=== PATIENT | male | born 2000 | race Caucasian/White ===

== ENCOUNTER 2019-03-11 16:29 | Inpatient (IN) ==
[2019-03-11] MEDS ORDERED: METHYLPREDNISOLONE SOD SUCC/PF 125 MG/2 ML VIAL IV ONE (16:58)
[2019-03-11] MEDS ORDERED: ALBUTEROL SULFATE/IPRATROPIUM 3 ML NEBU IH ONE (16:58)
[2019-03-11 17:09] LABS: Hemoglobin 16.5 gm/dL (13.5-18.0); Mean Cell Volume 87.4 fl (78-100); Mean Corpuscular Hemoglobin 30.1 pg (27-31); Mean Corpuscular Hgb Conc 34.4 g/dl (32-36); Mean Platelet Volume 9.6 fl (8-11.3); Neutrophil # 7.6 K/mm3 (1.3-6.0); Neutrophil % 62.1 % (42-75.0); Platelet Count 302 K/mm3 (150-450); Red Blood Count 5.49 M/mm3 (4.7-6.0); Red Cell Distribution Width 12.6 % (11.5-14.0); White Blood Count 12.2 K/mm3 (4.0-10.5)
[2019-03-11 17:23] LABS: Albumin * 4.7 gm/dl (3.4-5.0); BUN/Creatinine Ratio 12.4 (9.0-21.6); Bilirubin, Total 0.5 mg/dL (0.0-1.1); Calcium * 8.9 mg/dL (7.9-10.9)
[2019-03-11] MEDS ORDERED: ALBUTEROL SULFATE 2.5 MG/0.5 ML VIAL.NEB IH ONE (18:51)
--- NOTE | 2019-03-11 18:59 | ERNOTE ---
Dyspnea - Date Date of Service: 03/11/19 - General Presenting Symptoms: wheezing Time Seen by Provider: 03/11/19 16:51 Source: patient, RN notes reviewed Exam Limitations: no limitations - Immun/Allergies/Home Medications Immunizations: IMMUNIZATION HX Immunizations Up to Date Yes History of Influenza Vaccine No Hx Pneumococcal Vaccination No Allergies/Adverse Reactions: Allergies cat dander Allergy (Verified 02/10/19 09:56) per testing dog dander Allergy (Verified 02/10/19 09:56) per testing egg Allergy (Verified 02/10/19 09:56) eye white house dust mite Allergy (Verified 02/10/19 09:56) montelukast sodium [From Singulair] Allergy (Verified 02/10/19 09:56) Other tree and shrub pollen Allergy (Verified 02/10/19 09:56) rhinitis cefuroxime Adverse Reaction (Verified 02/10/19 09:56) vomiting and diarrhea sulfamethoxazole [From Bactrim] Adverse Reaction (Verified 02/10/19 09:56) vomiting trimethoprim [From Bactrim] Adverse Reaction (Verified 02/10/19 09:56) vomiting Home Medications: HOME MEDICATIONS dexmethylphenidate 5 mg tablet 5 mg PO .Qafternoon PRN #30 tab 11/21/18 [Last Taken Unknown] dexmethylphenidate 20 mg capsule,extended release [id number] 20 mg PO DAILY #30 cap 02/06/19 [Last Taken Unknown] zileuton 600 mg tablet,extended release 12hr mphase 2 tab PO BID #360 tab 02/10/19 [Last Taken Unknown] albuterol sulfate 90 mcg/actuation aerosol inhaler 2 puff INHALATION TID PRN #8.5 g 02/28/19 [Last Taken Unknown] - History of Present Illness Narrative: Gordon is a 18-year-old male with a history of asthma who presents to the emergency department for a cough, wheezing and chest pain. He has had the cough for approximately a week. He has been having chest pain since early this morning. This worsens with deep breathing. He reports that he is usually able to manage his asthma with his inhalers but his wheezing has not improved with them at this time. He also reports nasal congestion, headache and sore throat. He feels like his breathing gets worse when he is at his apartment. There is construction being done in his building. He has never been hospitalized for his asthma or had to come to the ED for breathing problems. He has never seen a environmental conflict manager. He is not a smoker but does admit to vaping occasionally. Initiating event: Reports: unknown Frequency of episodes: Reports: occassional episodes - not as severe Prior Treatment: Denies: recently seen Review of Systems - Review of Systems Constitutional: Present: chills, malaise EYE: Absent: eye pain, eye discharge ENT: Present: nose congestion, nasal drainage, sore throat. Absent: ear pain Respiratory: Present: shortness of breath, cough, wheezing. Absent: stridor Cardiology: Present: chest pain. Absent: syncope Gastrointestinal/Abdominal: Absent: nausea, vomiting, diarrhea, abdominal pain Genitourinary: Present: no symptoms reported Musculoskeletal: Absent: muscle pain, joint pain Skin: Absent: rash, lesions Neurological: Present: headache. Absent: dizziness/light-headedness Endocrine: Present: no symptoms reported Hematologic/Lymphatic: Absent: easy bruising, easy bleeding Psych: Present: no symptoms reported Medical History (Last Reviewed 03/11/19 @ 19:32 by Tracy Clancy NP) ADHD (attention deficit hyperactivity disorder), combined type (Acute) Controlled mild persistent asthma (Chronic) Uncontrolled mild persistent asthma (Chronic) Concussion (Acute) Laceration (Acute) ADHD Allergic rhinitis Asthma Bifid uvula Congenital alimentary tract anomaly Contact dermatitis Eustachian tube dysfunction Otitis media, acute Perforation of tympanic membrane Sinusitis chronic, sphenoidal Strep pharyngitis Tonsillar and adenoid hypertrophy nasal obstruction vestibulitis Surgical History: Surgical History (Last Reviewed 03/11/19 @ 19:32 by Tracy Clancy NP) Hydrocele Onset Date: ~2000 Male circumcision S/p bilateral myringotomy with tube placement x5 Family History: Family History (Last Reviewed 03/11/19 @ 19:32 by Tracy Clancy NP) Mother Hypertension Depression Anxiety Grandmother Hypertension Grandfather Hypertension Myocardial infarction Brother ADD (attention deficit disorder) Social History: (Last Reviewed 03/11/19 @ 19:32 by Tracy Clancy NP) Social History: prison: No Marital status: Single household members: family current occupational status: employed current occupation: bilingual counter sales retail at [employer] Highest education level completed: high school graduate Service: No Tobacco: Smoking Status: Never smoker Alcohol: alcohol intake: never Substance Use: substance use type: does not use Dietary Habits: caffeine: Yes Physical Exam - Physical Exam General Appearance: Present: alert, no apparent distress, thin Head Exam: Present: normal inspection Eye Exam: Normal inspection: bilateral Ears, Nose, Throat: Present: nasal congestion, pharyngeal erythema. Absent: a bnormal TM (R), abnormal TM (L), pharyngeal swelling, dry mucous membranes Neck: Present: normal inspection, nontender, supple, full range of motion Respiratory: Present: accessory muscle use, expiration (prolonged), wheezing - severe Cardiovascular/Chest: Present: no murmur, normal peripheral pulses, tachycardia Extremity Exam: Present: normal inspection, normal range of motion, no edema Neurological Exam: Present: alert, oriented, normal mood/affect, no motor/sensory deficits Skin Exam: Present: normal color, warm/dry Progress - Results and Orders Patient's Lab Results:: I have reviewed the patient's lab results. - Vital Signs Patient's Vital Signs:: I have reviewed the patient's vital signs. Vital Signs: Vital Signs 03/11/19 16:36 03/11/19 18:37 Temperature 36.9 C Pulse Rate 110 H 102 H Respiratory Rate 14 18 Blood Pressure 145/89 H 130/72 O2 Sat by Pulse Oximetry 98 95 - EKG EKG #1 EKG: NSR EKG read: Reviewed by me - X-Ray X-Ray #1 X-Ray: chest Interpretation: Reviewed by me X-ray Comments: No acute cardiopulmonary findings - Progress/Reassessment Chief Complaint: Chest Pain Progress:: Improved Plan - Plan Plan: The patient did not feel that his breathing had improved after IV SoluMedrol and a Duoneb treatment. He continued to have severe wheezing. His oxygen saturation was in the upper 90's initially but then dropped to the low 90's and occasionally upper 80's. He was given an hour long continuous albuterol treatment. His sats improved for a short time. He is currently 94-96% with oxygen at 2 L/NC. Dr. Tucker was contacted and the patient will be admitted to observation due to his hypoxia. Departure Clinical Impression: Hypoxia Asthma with acute exacerbation Qualifiers: Asthma severity: unspecified severity Asthma persistence: unspecified Qualified Code(s): J45.901 - Unspecified asthma with (acute) exacerbation - Departure Disposition: Still a patient Condition: Stable Referrals: Jesse Carrillo DO [Primary Care Provider] -
[2019-03-12] MEDS ORDERED: predniSONE 20 MG TABLET ONE (07:58)
[2019-03-12] MEDS: predniSONE 20 MG TABLET PO SCH (08:03)
[2019-03-12] MEDS ORDERED: ALBUTEROL SULFATE 2.5 MG/0.5 ML VIAL.NEB IH PRN (08:11)
[2019-03-12] MEDS ORDERED: DEXMETHYLPHENIDATE HCL 5 MG PO PRN (08:11)
--- NOTE | 2019-03-12 08:14 | HP ---
Chief Complaint - Chief Complaint Date of Service: 03/12/19 Time of Service: 08:04 Chief Complaint: dyspnea, cough History of Present Illness: Patient with a past medical history of asthma presented to the ED with dyspnea and cough. He was having some chest pain yesterday with his cough. Symptoms have been present for about a week. He lives in an apartment over a store that is undergoing some renovations. He used to vape, but has not done so in the last year. Does not smoke. He has never been to the ER for an asthma attack before. If he has an asthma attack, it usually is controlled with his albuterol inhalers. In the ED, he was given 125 mg of Solu-Medrol and a continuous hour- long breathing treatment, but his oxygen was still around 90%. He was admitted for oxygen administration. This morning, he feels better. He did not require DuoNeb treatments overnight. His chest does not feel as tight. He is now able to take a deep breath without coughing. He is still requiring oxygen, 4 L currently. Denies other complaints. Medical History (Last Reviewed 03/11/19 @ 21:28 by Josefina Boles RN) ADHD (attention deficit hyperactivity disorder), combined type (Acute) Controlled mild persistent asthma (Chronic) Uncontrolled mild persistent asthma (Chronic) Concussion (Acute) Laceration (Acute) ADHD Allergic rhinitis Asthma Bifid uvula Congenital alimentary tract anomaly Contact dermatitis Eustachian tube dysfunction Otitis media, acute Perforation of tympanic membrane Sinusitis chronic, sphenoidal Strep pharyngitis Tonsillar and adenoid hypertrophy nasal obstruction vestibulitis Surgical History: Surgical History (Last Reviewed 03/11/19 @ 22:28 by Josefina Boles RN) Hydrocele Onset Date: ~2000 Male circumcision S/p bilateral myringotomy with tube placement x5 Family History: Family History (Last Reviewed 03/11/19 @ 21:28 by Josefina Boles RN) Mother Hypertension Depression Anxiety Grandmother Hypertension Grandfather Hypertension Myocardial infarction Brother ADD (attention deficit disorder) Social History: (Last Reviewed 03/11/19 @ 21:28 by Josefina Boles RN) Social History: fdc: No Marital status: Single household members: family current occupational status: employed current occupation: chef german at [employer] Highest education level completed: high school graduate Service: No Tobacco: Smoking Status: Never smoker Alcohol: alcohol intake: never Substance Use: substance use type: does not use Dietary Habits: caffeine: Yes Review Of Systems (GEN) - Review of Systems Generalized/Overall Review: Absent: Fever Respiratory: Present: Cough, Shortness of Breath, Wheezing Cardiac: Present: Chest Pain Abdominal: Absent: Nausea, Vomiting Genitourinary: Present: No Symptoms Reported Neurological: Present: No Symptoms Reported Skin: Present: No Symptoms Reported Immunizations: IMMUNIZATION HX Immunizations Up to Date Yes History of Influenza Vaccine No Hx Pneumococcal Vaccination No Allergies/Adverse Reactions: Allergies Allergy/AdvReac Type Severity Reaction Status Date / Time cat dander Allergy Verified 02/10/19 09:56 dog dander Allergy Verified 02/10/19 09:56 egg Allergy Verified 02/10/19 09:56 house dust mite Allergy Verified 02/10/19 09:56 montelukast sodium Allergy Other Verified 02/10/19 09:56 [From Singulair] tree and shrub pollen Allergy rhinitis Verified 02/10/19 09:56 cefuroxime AdvReac vomiting Verified 02/10/19 09:56 and diarrhea sulfamethoxazole AdvReac vomiting Verified 02/10/19 09:56 [From Bactrim] trimethoprim [From Bactrim] AdvReac vomiting Verified 02/10/19 09:56 Home Medications: HOME MEDICATIONS dexmethylphenidate 5 mg tablet 5 mg PO .Qafternoon PRN #30 tab 11/21/18 [Last Taken Unknown] dexmethylphenidate 20 mg capsule,extended release [id number] 20 mg PO DAILY #30 cap 02/06/19 [Last Taken 03/11/19] zileuton 600 mg tablet,extended release 12hr mphase 2 tab PO BID #360 tab 02/10/19 [Last Taken 03/11/19] albuterol sulfate 90 mcg/actuation aerosol inhaler 2 puff INHALATION TID PRN #8.5 g 02/28/19 [Last Taken 03/11/19] Exam - Exam Vital Signs: Vital Signs - Last Taken Temp 36.8 C 03/12/19 06:41 Pulse 78 03/12/19 06:41 Resp 18 03/12/19 06:41 BP 116/57 03/12/19 06:41 Pulse Ox 94 03/12/19 06:41 Constitutional: Present: Cooperative, Well developed, Well nourished, No distress Respiratory: Present: wheezing - right lower lobe posteriorly, other - wearing 4L via NC Cardiovascular/Chest: Present: regular rate, rhythm Abdomen: Present: soft, nontender Diagnostic Studies: Abnormal Lab Results 03/11/19 03/11/19 Range/Units 17:05 17:05 WBC 12.2 H (4.0-10.5) K/mm3 Eosinophils % 7.4 H (0.0-3.0) % Neutrophils # 7.6 H (1.3-6.0) K/mm3 Eosinophils # 0.9 H (0.0-0.7) k/mm3 Anion Gap 14.0 H (6.8-13.8) mmol/L Calcium Adj for Albumin 8.0 L (8.4-10.2) mg/dL Laboratory Results WBC 12.2 K/mm3 (4.0-10.5) H 03/11/19 17:05 RBC 5.49 M/mm3 (4.7-6.0) 03/11/19 17:05 Hgb 16.5 gm/dL (13.5-18.0) 03/11/19 17:05 Hct 48.0 % (42.0-52.0) 03/11/19 17:05 MCV 87.4 fl (78-100) 03/11/19 17:05 MCH 30.1 pg (27-31) 03/11/19 17:05 MCHC 34.4 g/dl (32-36) 03/11/19 17:05 RDW 12.6 % (11.5-14.0) 03/11/19 17:05 Plt Count 302 K/mm3 (150-450) 03/11/19 17:05 MPV 9.6 fl (8-11.3) 03/11/19 17:05 Immature Gran % (Auto) 0.20 % (0.001-0.429) 03/11/19 17:05 Immature Gran # (Auto) 0.02 K/mm3 (0.000-0.0310) 03/11/19 17:05 Neutrophils % 62.1 % (42-75.0) 03/11/19 17:05 Lymphocytes % 23.6 % (20-51) 03/11/19 17:05 Monocytes % 5.8 % (0.0-9) 03/11/19 17:05 Eosinophils % 7.4 % (0.0-3.0) H 03/11/19 17:05 Basophils % 0.9 % (0.0-1.0) 03/11/19 17:05 Nucleated RBC % 0.0 k/mm3 (0-1) 03/11/19 17:05 Neutrophils # 7.6 K/mm3 (1.3-6.0) H 03/11/19 17:05 Lymphocytes # 2.89 k/mm3 (1.5-3.5) 03/11/19 17:05 Monocytes # 0.7 k/mm3 (0.0-1.0) 03/11/19 17:05 Eosinophils # 0.9 k/mm3 (0.0-0.7) H 03/11/19 17:05 Absolute Basophils 0.1 k/mm3 (0.0-0.1) 03/11/19 17:05 Sodium 141 mmol/L (132-142) 03/11/19 17:05 Plasma Sodium 141 mmol/L (130-142) 03/11/19 17:05 Potassium 4.0 mmol/L (3.4-4.6) 03/11/19 17:05 Chloride 102 mmol/L (97-106) 03/11/19 17:05 Carbon Dioxide 29.0 mmol/L (24-32.6) 03/11/19 17:05 Anion Gap 14.0 mmol/L (6.8-13.8) H 03/11/19 17:05 BUN 11 mg/dL (6-23) 03/11/19 17:05 Creatinine 0.89 mg/dL (0.4-1.4) 03/11/19 17:05 Est GFR (Non-Af Amer) 116 mL/min (60-130) D 03/11/19 17:05 BUN/Creatinine Ratio 12.4 (9.0-21.6) 03/11/19 17:05 Random Glucose 99 mg/dL (70-110) 03/11/19 17:05 Calcium 8.9 mg/dL (7.9-10.9) 03/11/19 17:05 Calcium Adj for Albumin 8.0 mg/dL (8.4-10.2) L 03/11/19 17:05 Total Bilirubin 0.5 mg/dL (0.0-1.1) 03/11/19 17:05 AST 23 U/L (0-48) 03/11/19 17:05 ALT 20 U/L (19-67) 03/11/19 17:05 Alkaline Phosphatase 70 U/L (50-170) 03/11/19 17:05 Total Protein 8.0 gm/dL (6.2-8.2) 03/11/19 17:05 Albumin 4.7 gm/dl (3.4-5.0) 03/11/19 17:05 Influenza Type A Ag Negative (NEGATIVE) 03/11/19 17:53 Influenza Type B Ag Negative (NEGATIVE) 03/11/19 17:53 Group A Strep Rapid Negative (NEGATIVE) 03/11/19 17:53 Assessment/Plan - Assessment/Plan (1) Asthma with acute exacerbation Assessment: He received 125 mg of Solu-Medrol in the ED. We will start 60 mg prednisone today. Will continue his home meds. I suspect this is due to dust inhalation. He feels better this morning, but is still requiring oxygen. He has mild wheezes on exam. Will continue duo nebs as needed, and try to wean him off oxygen. Anticipate discharge within 24 hours. Problem: Acute Qualifiers: Asthma severity: moderate Asthma persistence: unspecified Qualified Code(s): J45.901 - Unspecified asthma with (acute) exacerbation
[2019-03-12] MEDS: ZILEUTON 600 MG PO SCH ×2 (08:40→21:20)
[2019-03-12] MEDS: DEXMETHYLPHENIDATE HCL 20 MG PO SCH (08:40)
[2019-03-12] MEDS: ALBUTEROL SULFATE/IPRATROPIUM 3 ML NEBU IH PRN (11:39)
[2019-03-13] MEDS: ALBUTEROL SULFATE/IPRATROPIUM 3 ML NEBU IH PRN (06:13)
[2019-03-13] MEDS: predniSONE 20 MG TABLET PO SCH (09:48)
[2019-03-13] MEDS: DEXMETHYLPHENIDATE HCL 20 MG PO SCH (09:48)
[2019-03-13] MEDS: ZILEUTON 600 MG PO SCH ×2 (09:48→21:30)
--- NOTE | 2019-03-13 18:06 | PN ---
Subjective - Date and Time Seen Date: 03/13/19 Time: 10:57 Subjective Narrative: Patient still having difficulty with solid breathing, mild respiratory distress. He still requiring nasal cannula oxygen to maintain sats. Endorses some wheezing, shortness of breath, cough. Otherwise vital signs been stable and has been afebrile. Objective - Review of Systems Generalized/Overall Review: Denies: Chills, Fever, Diaphoresis, Fatigue EENTM: Reports: No Symptoms Reported Respiratory: Reports: Cough, Shortness of Breath, Wheezing Cardiac: Denies: Chest Pain, Edema, Palpitations Abdominal: Denies: Nausea, Vomiting, Abdominal Pain, Diarrhea Genitourinary Symptoms: Reports: No Symptoms Reported Neurological: Reports: No Symptoms Reported Skin: Reports: No Symptoms Reported - Vitals Vitals: Last Vital Signs Temp 37.0 C 03/13/19 15:14 Pulse 93 03/13/19 15:14 Resp 18 03/13/19 15:14 BP 121/66 03/13/19 15:14 Pulse Ox 95 03/13/19 16:43 - Exam Constitutional: Present: Alert, Oriented x3, Mild distress, Young ENT Exam: Absent: nasal congestion, nasal drainage, pharyngeal erythema Neck: Present: non-tender, supple Respiratory: Present: no accessory muscle use, respiratory distress - Mild, rhonchi, wheezing, expiration (prolonged) Cardiovascular/Chest: Present: regular rate, rhythm, no edema, no murmur Abdomen: Present: Normal bowel sounds, soft, nontender, nondistended /Rectal: Present: Exam deferred Skin Exam: Present: normal color, warm/dry Appearance: Present: appropriate appearance, appropriate insight Eye contact: Present: cooperative, good eye contact Thoughts: Present: normal thought pattern, normal mood /affect Assessment/Plan Plan Narrative: 18-year-old male brought in for acute asthma exacerbation, requiring nasal cannula oxygen administration to maintain sats. Patient has albuterol nebs given as needed which is helping with some of the wheezing. Patient was restarted on his Zileuton. Patient was started on steroids. Patient's exam consistent with persistent asthma exacerbation, will keep him overnight while he continues to require oxygen to maintain sats and continue steroids. Likely home tomorrow. No DVT prophylaxis needed, regular diet. Nurse to call questions or concerns. - Problems/Diagnosis (1) Asthma with acute exacerbation Problem: Acute Qualifiers: Asthma severity: moderate Asthma persistence: unspecified Qualified Code(s): J45.901 - Unspecified asthma with (acute) exacerbation (2) Hypoxia Problem: Acute (3) ADHD (attention deficit hyperactivity disorder), combined type Problem: Acute
[2019-03-14] MEDS: ZILEUTON 600 MG PO SCH (09:04)
[2019-03-14] MEDS: DEXMETHYLPHENIDATE HCL 20 MG PO SCH (09:04)
[2019-03-14] MEDS: predniSONE 20 MG TABLET PO SCH (09:04)
--- NOTE | 2019-03-14 11:38 | DS ---
(1) Asthma with acute exacerbation Problem: Acute Qualifiers: Asthma severity: moderate Asthma persistence: unspecified Qualified Code(s): J45.901 - Unspecified asthma with (acute) exacerbation (2) Hypoxia Problem: Acute (3) ADHD (attention deficit hyperactivity disorder), combined type Problem: Acute Hospital Course: 18-year-old male with history of mild to moderate persistent asthma presented to the hospital a few days ago with asthma exacerbation. He states that he has had a cough for the last 5 or so days prior to coming to the hospital which is likely triggered his asthma. While here he received breathing treatments and was started on steroids, as well as needed nasal cannula oxygen administration to maintain sats. Today he is feeling much better, he is no longer hypoxic. We will go ahead and continue prednisone for another 5 days which was sent to his pharmacy. We will also send in a Z-Constantino to help with his cough. Patient is to go home and restart his zileuton which he has been off of since coming here. Patient is in agreement the treatment plan, he will follow with his PCP in 2 weeks. Procedures Performed: none Results and Findings: Lab Pending Results 03/11/19 17:05: WBC 12.2 H, RBC 5.49, Hgb 16.5, Hct 48.0, MCV 87.4, MCH 30.1, MCHC 34.4, RDW 12.6, Plt Count 302, MPV 9.6, Immature Gran % (Auto) 0.20, Immature Gran # (Auto) 0.02, Neutrophils % 62.1, Lymphocytes % 23.6, Monocytes % 5.8, Eosinophils % 7.4 H, Basophils % 0.9, Nucleated RBC % 0.0, Neutrophils # 7.6 H, Lymphocytes # 2.89, Monocytes # 0.7, Eosinophils # 0.9 H, Absolute Basophils 0.1 03/11/19 17:05: Sodium 141, Plasma Sodium 141, Potassium 4.0, Chloride 102, Carbon Dioxide 29.0, Anion Gap 14.0 H, BUN 11, Creatinine 0.89, Est GFR (Non-Af Amer) 116 D, BUN/Creatinine Ratio 12.4, Random Glucose 99, Calcium 8.9, Calcium Adj for Albumin 8.0 L, Total Bilirubin 0.5, AST 23, ALT 20, Alkaline Phosphatase 70, Total Protein 8.0, Albumin 4.7 03/11/19 17:53: Influenza Type A Ag Negative, Influenza Type B Ag Negative 03/11/19 17:53: Group A Strep Rapid Negative Discharge Location: Home Disposition: Home self-care Condition: Good Discharge Activity: Activity as tolerated Discharge Diet: General/regular food Referrals: Jesse Carrillo DO [Primary Care Provider] - Two Weeks Prescriptions (Any new or edited meds): predniSONE [Prednisone] 40 mg PO DAILY #10 tab Transmission Status: Pending to [facility] Complete Home Medications List: Complete Home Medication List: dexmethylphenidate 5 mg tablet 5 mg PO .Qafternoon PRN #30 tab 11/21/18 dexmethylphenidate 20 mg capsule,extended release [id number] 20 mg PO DAILY #30 cap 02/06/19 zileuton 600 mg tablet,extended release 12hr mphase 2 tab PO BID #360 tab 02/10/19 albuterol sulfate 90 mcg/actuation aerosol inhaler 2 puff INHALATION TID PRN #8.5 g 02/28/19 predniSONE [Prednisone] 40 mg PO DAILY #10 tab 03/14/19
[2019-03-14 12:56] VITALS: BP 135/71
== END 2019-03-14 12:43 | disposition home or self-care (01) | DRG 203 ==
LOC: ER 16:29 → MS 16:29
PROVIDERS: ADMIT Family Medicine; ATTEND Family Medicine
CPT/HCPCS: 36415; 71020; 71046; 80053; 85025; 87081; 87400; 87430; 87449; 93005; 94640; 94664; 96374; 99285; G0378